=== PATIENT | female | born 1960 | race Caucasian/White ===

== ENCOUNTER 2020-02-10 06:21 | Day surgery (SDC) | payer OTHER ==
[~2020-02-10 06:21] MED LIST: ACID REDUCER20 M1 PO; CANDESAR PO; HORIZANT300 MG PO; PENTOXIFYLLINE400 MG PO; RESTASIS MULTI5.5 ML OP; SYNTHROID75 MCG PO; SYSTANE; VITAMIN C100 MG; VITAMIN C100 MG PO
== END 2020-02-10 20:00 | disposition home or self-care (01) ==
LOC: CIR.AMB 06:21
PROVIDERS: ATTEND Surgery
DX: D24.1 Benign neoplasm of right breast (principal); D24.2 Benign neoplasm of left breast; Z20.828 Contact with and (suspected) exposure to other viral communicable diseases

== ENCOUNTER 2025-03-31 20:11 | Day surgery (SDC) | payer OTHER ==
[2025-03-30 10:05] LABS: INR 0.98
[2025-03-30 10:16] LABS: COVID-19 AG NEGATIVE (NEGATIVE)
[2025-03-30 12:23] VITALS: BP 143/84
[~2025-03-31] VITALS: Ht 167.6 cm; Wt 86.2 kg
[~2025-03-31 20:11] MED LIST changes: +CEFAZOLIN SODIUM 1,000 MG VIAL ONE; +CETIRIZINE 10 MG; +GABAPENTIN; +ONDANSETRON HCL 2 MG/ML VIAL ONE
== END 2025-03-31 20:25 | disposition home or self-care (01) ==
LOC: CIR.AMB 20:11
PROVIDERS: ATTEND Surgery
DX: C50.411 Malignant neoplasm of upper-outer quadrant of right female breast (principal)